=== PATIENT | male | born 1980 ===

== ENCOUNTER 2022-12-23 04:01 | Outpatient (CLI) | payer SELFPAY | END 2022-12-23 04:02 | disposition EMS.NT | LOC: EMS 04:01 | DX: S01.01XA Laceration without foreign body of scalp, initial encounter (principal); W20.8XXA Other cause of strike by thrown, projected or falling object, initial encounter; Y93.89 Activity, other specified; Y92.89 Other specified places as the place of occurrence of the external cause; Y99.0 Civilian activity done for income or pay ==